=== PATIENT | male | born 1945 | race Caucasian/White ===

== ENCOUNTER 2020-09-19 13:39 | Emergency (ER) | payer MEDICARE, MEDICAID, SELFPAY ==
[2020-09-19 13:40] VITALS: BP 140/101; PULSE 82; RESP 20; TEMP 35.9; O2SAT 97; BMI 40.0
--- NOTE | 2020-09-19 14:13 | USCV_ITS ---
Devin Valentin Age: 75 Gender: M : 1945 Exam Date: 09/19/2020 14:44 Ordering Phys: Walker Mendosa DO Technologist: Exam Location: [facility] [place] Indication: bilat leg edema HISTORY: Lower extremity swelling. PROCEDURES: The venous duplex Doppler examination of both lower extremities was performed in the standard fashion. The following venous structures were evaluated: common femoral vein, profunda vein, proximal portion of the greater saphenous vein, superficial femoral vein, and the popliteal vein. In addition, the posterior tibial and peroneal trunk were evaluated. Bilaterally, the common femoral, superficial femoral, profunda femoral, popliteal, posterior tibial, greater saphenous veins, and the peroneal trunk were identified and interrogated in the standard fashion. These veins were found to be easily compressible with spontaneous blood flow. No evidence of insufficiency or thrombus noted. FINDINGS: Normal 2-D Doppler and augmentation and compressibility throughout the lower extremity venous structures. Additional imaging through the proximal calf veins also reveals no thrombus. Limited evaluation of the greater saphenous vein is patent with no thrombus.. CONCLUSIONS No evidence of right lower extremity DVT. No evidence of left lower extremity DVT. Zion Schroeder MD (Electronically Signed) Final Date: 19 Sep 2020 15:43 S
--- NOTE | 2020-09-19 14:13 | XRR_ITS ---
PROCEDURE INFORMATION: Exam: XR Chest Exam date and time: 09/19/2020 2:16 PM Age: 75 years old Clinical indication: Cough and dyspnea; Additional info: Dyspnea/cough TECHNIQUE: Imaging protocol: XR of the chest. Views: 1 view. COMPARISON: No relevant prior studies available. FINDINGS: Lungs: Hazy lower lung opacities bilaterally. Dense opacity left lung base, possibly layering pleural effusion. Pleural spaces: No pneumothorax. Heart/Mediastinum: Moderate enlargement of cardiomediastinal contour. Vasculature: Moderate atherosclerosis of thoracic aorta. 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 No acute thoracic fracture. XR/XR chest 1V portable [id number] IMPRESSION: 1. Cardiomegaly. 2. Nonspecific hazy lower lung opacities; favor mild pulmonary edema changes. 3. Suspect left-sided pleural effusion.
[2020-09-19 15:03] LABS: Basophils # 0.1 10^3/uL (0.0-0.1); Basophils % 0.8 %; Eosinophils # 0.2 10^3/uL (0.0-0.8); Eosinophils % 1.9 %; Hematocrit 40.5 % (42.0-52.0); Hemoglobin 12.8 g/dL (11.7-16.6); Lymphocytes % 20.8 %; Mean Corpuscular HGB Conc 31.6 g/dL (30.0-36.0); Mean Corpuscular Hemoglobin 26.2 pg (28.0-34.0); Monocytes # 1.3 10^3/uL (0.2-0.9); Monocytes % 13.4 %; Neutrophils % 62.4 %; Nucleated Red Blood Cells % 0 %; Platelet Count 329 10^3/cmm (130-400); Red Blood Count 4.88 10^6/uL (4.1-5.3); Red Cell Distribution Width 15.4 % (12.1-15.1); White Blood Count 9.8 10^3/uL (4.0-10.0)
[2020-09-19 15:13] LABS: Alanine Aminotransferase 14 U/L (0-41); Albumin Level 3.8 g/dL (3.5-5.2); Alkaline Phosphatase 93 IU/L (40-130); Anion Gap 18.8 (5-19); Aspartate Amino Transferase 21 U/L (0-40); Blood Urea Nitrogen 35 mg/dL (8-23); Calcium 8.9 mg/dL (8.5-10.5); Carbon Dioxide 22 mmol/L (22-29); Chloride 98 mmol/L (98-107); Globulin 2.3 g/dL (1.3-4.6); Glucose 125 mg/dL (65-115); Osmolality Calculated 289 mOsm/kg (285-295); Potassium 3.8 mmol/L (3.5-5.1); Sodium 135 mmol/L (136-145); Total Protein 6.1 g/dL (6.6-8.7)
--- NOTE | 2020-09-19 15:27 | ED_ITS ---
HPI - Extremity Problem General: Chief complaint: Extremity Problem,Nontraumatic Stated complaint: EDEMA, SOB Time Seen by Provider: 09/19/20 14:00 History of Present Illness: HPI Narrative: 75-year-old male presents emergency room with a complaint of swollen legs. He cries out continuously but evidently this is chronic behavior for him when I asked him if he has any pain he denies anything when asked him about the yelling as needed seemed understand that he is doing it the report from the long term is that he is this is continually. 2 days ago he was started on Lasix for edema but he has not gotten any yet evidently they had not got the prescription filled. When I asked him about if chest pain shortness of breath abdominal pain etc. replies no to all questions. MD Complaint: extremity pain and extremity swelling Onset (ago): week(s) Pain Consistency: constant Location: left, right and lower extremity Radiation: none Relieving factors: nothing Exacerbating factors: nothing Associated symptoms: Deny arthralgias, chest pain, fever(s), myalgias, rash or short of breath Review of Systems Const: Denies: fever(s) ENMT: Denies: throat pain, ear or mastoid pain, nasal discharge or nasal congestion Card: Denies: chest pain Resp: Denies: dyspnea, productive cough or non-productive cough GI: Denies: abdominal pain, nausea, vomiting, hematemesis, coffee ground emesis, diarrhea, constipation, bloating, hematochezia or melena : Denies: flank pain, dysuria, urinary frequency or urinary urgency Skin/Breast: Denies: rash Physical Exam Const: COMMON NORMALS: no acute distress GENERAL APPEARANCE: cooperative and comfortable ORIENTATION/CONSCIOUSNESS: Yes awake, Yes oriented to person, Yes oriented to place and Yes oriented to time HENMT: COMMON NORMALS: normocephalic, atraumatic and hearing grossly normal bilaterally HEAD & SCALP: normocephalic and atraumatic Neck/C-Spine: COMMON NORMALS: no JVD Resp: COMMON NORMALS: normal respiratory effort, No retractions, No use of accessory muscles and clear to auscultation bilaterally AUSCULTATION: clear to auscultation bilaterally Cardio: COMMON NORMALS: no JVD, regular rate, regular rhythm and No murmurs present (Cardio) RATE: regular rate RHYTHM: regular rhythm GI: COMMON NORMALS: Soft to palpation and No hepatosplenomegaly present AUSCULTATION: Yes normoactive bowel sounds PALPATION: Yes Soft to palpation, No Tenderness to palpation present (GI), No Guarding due to palpation present (GI) and Yes No hepatosplenomegaly present Extremity: COMMON NORMALS: no calf tenderness GENERAL: Yes edema (2+ edema bilaterally to the lower extremities to the level of the knees) Neuro: SENSORIUM/ORIENTATION: Yes oriented to person, Yes oriented to place and Yes oriented to time Skin: COMMON NORMALS: no rashes or lesions noted GENERAL SKIN EXAM: no rashes or lesions noted Course Vital Signs: Vital signs: Vital Signs Temperature 96.7 F L 09/19/20 13:40 Pulse Rate 78 09/19/20 16:21 Respiratory Rate 18 09/19/20 16:21 Blood Pressure 147/97 09/19/20 16:21 Pulse Oximetry 95 09/19/20 16:21 MDM - Extremity (Nontraumatic) MDM Narrative: Medical decision making narrative: Initiate Lasix at the long term as previously prescribed by primary care. Lab Data: Labs: Lab Results 09/19/20 09/19/20 09/19/20 Range/Units 14:10 14:10 15:35 WBC 9.8 (4.0-10.0) 10^3/ uL RBC 4.88 (4.1-5.3) 10^6/u L Hgb 12.8 (11.7-16.6) g/dL Hct 40.5 L (42.0-52.0) % MCV 83.0 (80-94) fL MCH 26.2 L (28.0-34.0) pg MCHC 31.6 (30.0-36.0) g/dL RDW 15.4 H (12.1-15.1) % Plt Count 329 (130-400) 10^3/c mm MPV 11.0 H (7.4-10.4) fL Neut % (Auto) 62.4 % Lymph % (Auto) 20.8 % [place] % (Auto) 13.4 % Eos % (Auto) 1.9 % Baso % (Auto) 0.8 % Neut # (Auto) 6.10 (1.8-7.7) 10^3/u L Lymph # (Auto) 2.0 (0.8-4.8) 10^3/u L [place] # (Auto) 1.3 H (0.2-0.9) 10^3/u L Eos # (Auto) 0.2 (0.0-0.8) 10^3/u L Baso # (Auto) 0.1 (0.0-0.1) 10^3/u L Nucleated RBC % (a uto) 0 % Nucleated RBCs # 0.0 /100WBC Sodium 135 L (136-145) mmol/L Potassium 3.8 (3.5-5.1) mmol/L Chloride 98 (98-107) mmol/L Carbon Dioxide 22 (22-29) mmol/L Anion Gap 18.8 (5-19) BUN 35 H (8-23) mg/dL Creatinine 0.9 (0.7-1.2) mg/dL GFR Calculation Not Reportable Glucose 125 H (65-115) mg/dL Calculated Osmolal ity 289 (285-295) mOsm/k g Calcium 8.9 (8.5-10.5) mg/dL Total Bilirubin 1.0 (0.15-1.2) mg/dL AST 21 (0-40) U/L ALT 14 (0-41) U/L Alkaline Phosphata se 93 (40-130) IU/L Total Protein 6.1 L (6.6-8.7) g/dL Albumin 3.8 (3.5-5.2) g/dL Globulin 2.3 (1.3-4.6) g/dL Urine Color Yellow (Yellow) Urine Appearance Clear (CLEAR) Urine pH 5 (5-7) Ur Specific Gravit y 1.010 (1.005-1.030) Urine Protein Neg (Negative) Urine Glucose (UA) Norm (Normal) Urine Ketones Negative (Negative) Urine Blood Neg (Negative) Urine Nitrate Negative (Negative) Urine Bilirubin Neg (Negative) Urine Urobilinogen Norm (Negative) mg/dL Ur Leukocyte Sheryl ase Negative (Negative) Discharge Plan Discharge Patient Disposition: Home Clinical Impression: Lower extremity edema Condition: Stable Prescriptions: No Action Lasix 40 mg Tablet 40 mg PO DAILY RF: 0 metformin 500 mg Tablet 500 mg PO BID RF: 0 potassium chloride 10 mEq Capsule, Extended Release 10 meq PO DAILY RF: 0 acetaminophen [Tylenol] 325 mg Tablet 650 mg PO Q6H PRN (Reason: Pain) RF: 0 nystatin 100,000 unit/gram Ointment 1 applic TOPICAL DAILY RF: 0 sertraline [Zoloft] 100 mg Tablet 100 mg PO DAILY RF: 0 Imodium A-D 2 mg Tablet See Rx Instructions .ROUTE .COMPLEX PRN (Reason: Loose Stool) RF: 0 Zyprexa 2.5 mg Tablet 2.5 mg PO BEDTIME RF: 0 acetaminophen [Tylenol Extra Strength] 500 mg Tablet 1,000 mg PO BID PRN (Reason: Pain) RF: 0 triamcinolone acetonide 0.1 % Cream See Rx Instructions .ROUTE .COMPLEX RF: 0 famotidine 20 mg Tablet 20 mg PO BID RF: 0 furosemide [Lasix] 80 mg Tablet 80 mg PO DAILY RF: 0 docusate sodium 100 mg Capsule 100 mg PO BID RF: 0 lisinopril-hydrochlorothiazide 20-25 mg Tablet 1 tab PO DAILY RF: 0 aspirin 81 mg Tablet,Chewable 81 mg PO BID RF: 0 Mylanta 200-200-20 mg/5 mL Suspension 30 ml PO Q6H PRN (Reason: Upset Stomach) RF: 0 guaifenesin 100 mg/5 mL Syrup 200 mg PO Q6H PRN (Reason: Cough) RF: 0 Eucerin Cream 1 applic TOPICAL DAILY PRN (Reason: dry feet) RF: 0 Biofreeze (menthol) 4 % Gel 1 applic TOPICAL TID PRN (Reason: Pain) RF: 0 Discharge Orders: Discharge ED (Routine); Ordered 09/19/20 Ordered By: Walker Mendosa Discharge Diet: Usual diet Discharge Activity: Resume usual activity Patient Instructions: Opioid Safety Activity Restrictions/Additional Instructions: Continue take Lasix as previously prescribed Coding Level of Care Code ED Clinical Documentation Improvement Specialist for Ramesh Camacho
[2020-09-19] MEDS: FUROsemide 10 mg/mL SDV 4mL 80 MG IM (15:49)
--- NOTE | 2020-09-19 16:00 | ECG_ITS ---
[facility] Test Date: 2020-09-19 Pat Name: Devin Valentin Department: Room: Gender: Male [employer]: : 1945 Requested By: Walker De Leon Order Number: [id number] Sada MD: All Caldwell M.D. Measurements Intervals [place] Rate: 93 P: [place]: QRS: 12 QRSD: 89 T: 72 QT: 367 QTc: 459 Interpretive Statements ATRIAL FIBRILLATION WITH ABERRANT CONDUCTION OR VENTRICULAR PREMATURE COMPLEXES LOW QRS VOLTAGE IN PRECORDIAL LEADS [QRS DEFLECTION < 1.0 mV IN CHEST LEADS] POSSIBLE ANTERIOR MYOCARDIAL INFARCTION , PROBABLY OLD [30 ms Q WAVE IN V3/V4, OR R < 0.2 mV IN V4] No previous ECG available for comparison Electronically Signed On 09-20-2020 8:02:46 CDT by All Caldwell M.D. [id number]
[2020-09-19 16:21] VITALS: BP 147/97; PULSE 78; RESP 18; O2SAT 95
[2020-09-19 16:49] LABS: Add Urine Microscopic? NO; Charge for UA Resulting for Rev
[2020-09-19 17:13] LABS: Bilirubin Urine Neg (Negative); Blood Urine Neg (Negative); Glucose Urine UA Norm (Normal); Ketones Urine Negative (Negative); Leukocyte Esterase Urine Negative (Negative); Nitrate Urine Negative (Negative); Protein Urine Neg (Negative); Urine Appearance Clear (CLEAR); Urine Color Yellow (Yellow); Urobilinogen Urine Norm (Negative); pH Urine 5 (5-7)
== END 2020-09-19 17:53 | disposition home or self-care (01) ==
PROVIDERS: Emergency Provider Family Medicine
DX: R60.0 Localized edema (principal); Z79.82 Long term (current) use of aspirin; Z79.84 Long term (current) use of oral hypoglycemic drugs
CPT/HCPCS: 71045; 80053; 81003; 85025; 93005; 93970; 96372; 96374; 96375; 99283; J1940